=== PATIENT | male | born 1940 | race Caucasian/White ===

== ENCOUNTER 2019-03-17 12:29 | Day surgery (SDC) | payer MEDICARE, OTHER ==
[~2019-03-17] VITALS: Ht 177.8 cm; Wt 102.3 kg
[~2019-03-17 12:29] MED LIST: ALPR1 PO; ASPI81EC PO; CEPH500 PO; DIOVAN; DIPATR PO; FINA5; FINA5 PO; FISH1000 PO; FURO40 PO; GABA100 PO; GABA800 PO; GABAPENTIN; GLUC500 PO; HYDR1TAB94 PO; LOMOTIL; METF500 PO; METFORMIN; MONT10T PO; MONTELUKAST; MULVITA; MYRBETRIQ25 MG PO; OMEP20ER PO; OXYACE5T PO; OXYCODONE; OXYCONTIN; POTCHL10ER PO; ROSU10TA PO; SIMV10; TAMS.4ER PO; VALS80 PO
--- NOTE | 2019-03-17 14:43 | NUR ---
03/17/19 1443 Ashley Wilde DELAY DUE TO SCHEDULED ANESTHESIOLOGIST NEEDED IN MAIN OR DUE TO A PT BLEED. WAITING ON ANESTHESIA TO GET HERE TO START CASE.
[2019-03-17 20:10] LABS: Thyroid Stimulating Hormone 1.85 uIU/mL (0.360-4.800)
[2019-03-17 20:59] LABS: Percent Saturation 26.6 % (20.0-50.0)
[2019-03-19 10:06] LABS: IMMUNOGLOBULIN A, QN, SERUM 168 mg/dL (61-437)
[2019-03-19 15:06] LABS: ENDOMYSIAL ANTIBODY IGA Negative (Negative)
== END 2019-03-17 16:25 | disposition home or self-care (01) ==
LOC: ORSCSDS 12:29
PROVIDERS: Internal Medicine Gastroenterology; Physician Assistant
PROC: 0DB48ZX Excision of Esophagogastric Junction, Via Natural or Artificial Opening Endoscopic, Diagnostic (ICD-10-PCS; principal; 2019-03-17 14:15)
PROC: 0D757ZZ Dilation of Esophagus, Via Natural or Artificial Opening (ICD-10-PCS; principal; 2019-03-17 14:15)
PROC: 0DBH8ZX Excision of Cecum, Via Natural or Artificial Opening Endoscopic, Diagnostic (ICD-10-PCS; principal; 2019-03-17 14:15)
PROC: 0DBK8ZX Excision of Ascending Colon, Via Natural or Artificial Opening Endoscopic, Diagnostic (ICD-10-PCS; principal; 2019-03-17 14:15)
PROC: 0DBP8ZX Excision of Rectum, Via Natural or Artificial Opening Endoscopic, Diagnostic (ICD-10-PCS; principal; 2019-03-17 14:15)
PROC: 0DBL8ZX Excision of Transverse Colon, Via Natural or Artificial Opening Endoscopic, Diagnostic (ICD-10-PCS; principal; 2019-03-17 14:15)
PROC: 0DB98ZX Excision of Duodenum, Via Natural or Artificial Opening Endoscopic, Diagnostic (ICD-10-PCS; principal; 2019-03-17 14:15)
PROC: 3E0H8GC Introduction of Other Therapeutic Substance into Lower GI, Via Natural or Artificial Opening Endoscopic (ICD-10-PCS; principal; 2019-03-17 14:15)
DX: Z12.11 Encounter for screening for malignant neoplasm of colon (principal); Z86.010 Personal history of colon polyps; K57.30 Diverticulosis of large intestine without perforation or abscess without bleeding; R13.14 Dysphagia, pharyngoesophageal phase; G47.30 Sleep apnea, unspecified; D12.3 Benign neoplasm of transverse colon; D12.2 Benign neoplasm of ascending colon; D12.8 Benign neoplasm of rectum; K63.5 Polyp of colon; K31.7 Polyp of stomach and duodenum; K44.9 Diaphragmatic hernia without obstruction or gangrene; K22.2 Esophageal obstruction; I12.9 Hypertensive chronic kidney disease with stage 1 through stage 4 chronic kidney disease, or unspecified chronic kidney disease; E11.22 Type 2 diabetes mellitus with diabetic chronic kidney disease; N18.9 Chronic kidney disease, unspecified; Z79.899 Other long term (current) drug therapy; G47.33 Obstructive sleep apnea (adult) (pediatric)
CPT/HCPCS: 82607; 82728; 82746; 82784; 82947; 83516; 83540; 83550; 84443; 86255; 88305; J2704; J7120

== ENCOUNTER → 2020-11-30 | Outpatient (CLI) | payer MEDICARE ==
[~2020-11-30] MED LIST changes: +LOSA50 PO; +MONT4; +Neurontin600 MG PO; +OMEP20ER; +SOLI5 PO; +TRAM50 PO; +ZOCOR20 MG PO
== END ==
LOC: LAB 16:50 → LAB SHORT 16:50
DX: D22.71 Melanocytic nevi of right lower limb, including hip (principal); D22.62 Melanocytic nevi of left upper limb, including shoulder; N48.1 Balanitis; L08.9 Local infection of the skin and subcutaneous tissue, unspecified; L81.4 Other melanin hyperpigmentation; Z71.89 Other specified counseling
CPT/HCPCS: 87070; 87205

== ENCOUNTER 2020-12-13 12:43 | Emergency (ER) | payer MEDICARE ==
[~2020-12-13] VITALS: Ht 172.7 cm; Wt 90.7 kg
== END 2020-12-13 14:20 | disposition left against medical advice (07) ==
LOC: ER 12:43
DX: Z53.21 Procedure and treatment not carried out due to patient leaving prior to being seen by health care provider (principal)
CPT/HCPCS: 36415; 80053; 84484; 85025; 93005; 93010

== ENCOUNTER 2020-12-13 14:17 | Day surgery (SDC) | payer MEDICARE ==
[~2020-12-13] VITALS: Ht 152.4 cm; Wt 96.0 kg
[~2020-12-13 14:17] MED LIST changes: -MONT4; -OMEP20ER
[2020-12-13] MEDS ORDERED: MONT4 (14:27)
[2020-12-13] MEDS ORDERED: OMEP20ER (14:27)
--- NOTE | 2020-12-13 15:00 | NUR ---
12/13/[address] AWARE CBG AT ED PRIOR TO CHECK IN AT [facility] WAS 112. NO NEED TO RECHECK
== END 2020-12-13 16:27 | disposition home or self-care (01) ==
LOC: ORSCSDS 14:17
PROVIDERS: Internal Medicine Gastroenterology
PROC: 0DBK8ZX Excision of Ascending Colon, Via Natural or Artificial Opening Endoscopic, Diagnostic (ICD-10-PCS; principal; 2020-12-13 15:00)
PROC: 0DBM8ZX Excision of Descending Colon, Via Natural or Artificial Opening Endoscopic, Diagnostic (ICD-10-PCS; principal; 2020-12-13 15:00)
DX: Z86.010 Personal history of colon polyps (principal); D12.2 Benign neoplasm of ascending colon; D12.4 Benign neoplasm of descending colon; E78.5 Hyperlipidemia, unspecified; G47.33 Obstructive sleep apnea (adult) (pediatric); N18.9 Chronic kidney disease, unspecified; Z79.899 Other long term (current) drug therapy; Z87.891 Personal history of nicotine dependence; K57.30 Diverticulosis of large intestine without perforation or abscess without bleeding; E66.9 Obesity, unspecified; Z68.33 Body mass index [BMI] 33.0-33.9, adult
CPT/HCPCS: 88305; J2704; J7120

== ENCOUNTER → 2021-02-09 | Outpatient (CLI) | payer MEDICARE ==
[~2021-02-09] MED LIST changes: +MONT4; +OMEP20ER
[2021-02-10 12:11] LABS: FATS, NEUTRAL Normal (.); FATS, TOTAL Normal (.)
== END ==
LOC: LAB SHORT 07:00 → LAB 07:00
PROVIDERS: Internal Medicine Gastroenterology
DX: R19.7 Diarrhea, unspecified (principal)
CPT/HCPCS: 82705

== ENCOUNTER → 2021-05-28 | Outpatient (CLI) | payer MEDICARE ==
[2021-05-29 01:53] LABS: Campylobacter Sp Not Detected (NOT DETECT); Enteroaggregative E. coli-EAEC Not Detected (NOT DETECT); Enteropathogenic E. coli-EPEC Not Detected (NOT DETECT); Enterotoxigenic E. coli-ETEC Not Detected (NOT DETECT); Plesiomonas Shigelloides Not Detected (NOT DETECT); Salmonella Sp Not Detected (NOT DETECT); Shiga Toxin-prod E. coli-STEC Not Detected (NOT DETECT); Vibrio Cholerae Not Detected (NOT DETECT); Vibrio Sp Not Detected (NOT DETECT); Yersinia Enterocolitica Not Detected (NOT DETECT)
[2021-05-29 01:54] LABS: Adenovirus F 40/41 Not Detected (NOT DETECT); Astrovirus Not Detected (NOT DETECT); Cryptosporidium Not Detected (NOT DETECT); Cyclospora Cayetanensis Not Detected (NOT DETECT); E. Coli O157 Not Detected (NOT DETECT); Entamoeba Histolytica Not Detected (NOT DETECT); Giardia Lamblia Not Detected (NOT DETECT); Norovirus GI/GII Not Detected (NOT DETECT); Rotavirus A Not Detected (NOT DETECT); Sapovirus Not Detected (NOT DETECT); Shigella/Enteroin E. coli-EIEC Not Detected (NOT DETECT)
== END | disposition home or self-care (01) ==
LOC: LAB SHORT 15:30 → LAB 15:30
PROVIDERS: Internal Medicine Gastroenterology
DX: R19.7 Diarrhea, unspecified (principal)
CPT/HCPCS: 0097U

== ENCOUNTER → 2021-08-07 | Outpatient (CLI) | payer MEDICARE | LOC: LAB SHORT 08:00 → LAB 08:00 | DX: R19.7 Diarrhea, unspecified (principal) | CPT/HCPCS: 87177; 87209 ==

== ENCOUNTER → 2022-02-20 | Outpatient (CLI) | payer MEDICARE ==
[2022-02-20 19:52] LABS: Creatinine, Urine Random 31.2 mg/dL (27.00-270.00); Microalb/Creat Ratio UR, Rand 34.295 mg/g (0.000-30.000); Microalbumin, Random Urine 10.7 mg/L (0.000-20.000)
== END | disposition home or self-care (01) ==
LOC: LAB 10:00 → LAB SHORT 10:00
PROVIDERS: Physician Assistant
DX: N18.30 Chronic kidney disease, stage 3 unspecified (principal)
CPT/HCPCS: 82043; 82570

== ENCOUNTER → 2024-03-31 | Outpatient (CLI) | payer MEDICARE ==
[~2024-03-31] MED LIST changes: +BUPRENORPHIN-N1 EAC5 SL
[2024-03-31 18:49] LABS: Microalb/Creat Ratio UR, Rand 19.091 mg/g (0.000-30.000); Microalbumin, Random Urine 71.4 mg/L (0.000-20.000)
== END | disposition home or self-care (01) ==
LOC: LAB SHORT 11:30 → LAB 11:30
PROVIDERS: Nurse Practitioner Family
DX: E11.22 Type 2 diabetes mellitus with diabetic chronic kidney disease (principal); N18.9 Chronic kidney disease, unspecified; E11.42 Type 2 diabetes mellitus with diabetic polyneuropathy
CPT/HCPCS: 82043; 82570